=== PATIENT | female | born 1990 ===

== ENCOUNTER 2017-08-04 14:37 | Inpatient (IN) | payer OTHER ==
[~2017-08-04] VITALS: Ht 170.2 cm; Wt 92.5 kg
[2017-08-13] MEDS ORDERED: PRENATAL TABLE1 EAC1 PO (13:15)
== END 2017-08-15 12:44 | disposition home or self-care (01) | DRG 775 ==
LOC: LDR 08-13 11:49 → OB/GYN 08-14 07:01 → LDR 08-21 14:37
PROC: 0KQM0ZZ Repair Perineum Muscle, Open Approach (ICD-10-PCS; principal; 2017-08-13)
PROC: 10E0XZZ Delivery of Products of Conception, External Approach (ICD-10-PCS; 2017-08-13)
PROC: 4A1HXCZ Monitoring of Products of Conception, Cardiac Rate, External Approach (ICD-10-PCS; 2017-08-13)
PROC: 4A033R1 Measurement of Arterial Saturation, Peripheral, Percutaneous Approach (ICD-10-PCS; 2017-08-13)
DX: O70.1 Second degree perineal laceration during delivery (principal); Z37.0 Single live birth; Z3A.38 38 weeks gestation of pregnancy

== ENCOUNTER 2017-08-13 10:27 | Outpatient (CLI) | payer OTHER ==
[2017-08-13] MEDS ORDERED: PRENATAL TABLE1 EAC1 PO (13:15)
== END 2017-08-13 11:46 | disposition still patient (30) ==
LOC: OBS/DEL 10:27
DX: O47.1 False labor at or after 37 completed weeks of gestation (principal); Z34.03 Encounter for supervision of normal first pregnancy, third trimester